=== PATIENT | female | born 1985 | race Caucasian/White ===

== ENCOUNTER 2018-12-07 20:53 | Emergency (ER) | payer MEDICAID ==
[~2018-12-07] VITALS: Ht 160 cm; Wt 49.9 kg
[2018-12-07 20:56] VITALS: BP_SYST 136
--- NOTE | 2018-12-07 20:56 | NUR ---
Placed in room 1 . Placed on time analysis clerk, blood pressure machine and pulse oximeter. To gown for exam. Side rails up.
--- NOTE | 2018-12-07 21:00 | NUR ---
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 En route 18G IV established, ASA, Nitro 0.4mg sublingual given. Denies any SOB, N/V/F, or any other symptoms. Will continue to monitor.
--- NOTE | 2018-12-07 21:30 | NUR ---
ER Dr. Rasmussen at bedside examining patient.
[2018-12-07 21:59] LABS: BASOPHILS % (AUTO) 0.8 % (0.0-2.0); EOSINOPHILS # (AUTO) 0.2 K/uL (0.0-0.4); EOSINOPHILS % (AUTO) 3.9 % (0.0-4.0); HEMATOCRIT 39.4 % (36-48); HEMOGLOBIN 13.2 g/dL (12.0-16.0); LYMPHOCYTES # (AUTO) 2.6 K/uL (1.0-5.5); LYMPHOCYTES % (AUTO) 41.9 % (20.5-51.5); MEAN CORPUSCULAR HEMOGLOBIN 32 pg (27-31); MEAN CORPUSCULAR HGB CONC 34 % (32-36); MEAN CORPUSCULAR VOLUME 94 fL (79.0-98.0); MONOCYTES # (AUTO) 0.4 K/uL (0.0-1.0); MONOCYTES % (AUTO) 7.3 % (1.7-9.3); NEUTROPHILS # (AUTO) 2.8 K/uL (1.8-7.7); NEUTROPHILS % (AUTO) 46.1 % (40.0-70.0); PLATELET COUNT (AUTO) 287 K/uL (130-430); RED BLOOD CELL COUNT(AUTO) 4.18 MIL/uL (4.2-6.2); RED CELL DISTRIBUTION WIDTH 13.3 % (9.0-15.0); WHITE BLOOD COUNT (AUTO) 6.1 K/uL (4.8-10.8)
[2018-12-07 22:14] LABS: CALCIUM 8.3 mg/dL (8.4-11.0); CREATININE 0.71 mg/dL (0.55-1.30); POTASSIUM 3.8 mmol/L (3.5-5.1)
[2018-12-07 22:17] LABS: INR 0.9 (0.8-1.2); PROTHROMBIN TIME 9.4 SECS (9.5-12.5)
[2018-12-07 22:19] LABS: ALBUMIN 3.3 g/dL (3.4-4.8); TOTAL BILIRUBIN 0.3 mg/dL (0.0-1.0)
--- NOTE | 2018-12-07 23:54 | NUR ---
Pt is sleeping in bed, no acute distress noted at this time. Will continue to monitor.
--- NOTE | 2018-12-08 00:18 | NUR ---
Patient transported to radiology via gurney, accompanied by rad staff.
[2018-12-08 00:25] LABS: BILIRUBIN,URINE 1+ (NEGATIVE); BLOOD, URINE 1+ (NEGATIVE); CLARITY/URINE CLEAR (CLEAR); COLOR,URINE YELLOW (YELLOW); GLUCOSE,URINE NEGATIVE (NEGATIVE); KETONES,URINE NEGATIVE (NEGATIVE); LEUKOCYTE ESTERASE ,URINE NEGATIVE (NEGATIVE); NITRITE, URINE NEGATIVE (NEGATIVE); PH,URINE 5.5 (5.0-8.0); PROTEIN URINE NEGATIVE (NEGATIVE); UROBILINOGEN,URINE 0.2 (0.2-1.0)
[2018-12-08 00:29] LABS: BACTERIA,URINE FEW /HPF (None Seen); WBC,URINE 0-3 /HPF (0-3)
--- NOTE | 2018-12-08 00:32 | NUR ---
Pt returned from radiology in stable condition, will continue to monitor.
[2018-12-08 00:43] LABS: BARBITURATE, URINE NEGATIVE (NEG <=200); BENZODIAZEPINE, URINE NEGATIVE (NEG <=150); CANNABINOID, URINE NEGATIVE (NEG <=50); COCAINE, URINE NEGATIVE (NEG <=150); METHAMPHETAMINES SCREEN,URINE NEGATIVE (NEG <=500); OPIATE, URINE NEGATIVE (NEG <=100); PHENCYCLIDINE SCREEN,URINE NEGATIVE (NEG <=25); UR TRICYCLIC ANTIDEPRESSANTS NEGATIVE (NEG <=300); URINE AMPHETAMINE POSITIVE (NEG <=500); URINE METHADONE NEGATIVE (NEG <=200); URINE OXYCODONE SCREEN NEGATIVE (NEG <=100); URINE PROPOXYPHENE SCREEN NEGATIVE (NEG <=300)
--- NOTE | 2018-12-08 01:30 | NUR ---
Pt is sleeping in bed, no acute distress noted at this time. Will continue to monitor.
--- NOTE | 2018-12-08 02:30 | NUR ---
Pt is sleeping in bed, no acute distress noted at this time. Will continue to monitor.
--- NOTE | 2018-12-08 03:30 | NUR ---
Pt is sleeping in bed, no acute distress noted at this time. Will continue to monitor.
--- NOTE | 2018-12-08 04:30 | NUR ---
Pt is sleeping in bed, no acute distress noted at this time. Will continue to monitor.
--- NOTE | 2018-12-08 05:30 | NUR ---
Pt is sleeping in bed, no acute distress noted at this time. Will continue to monitor.
--- NOTE | 2018-12-08 06:45 | NUR ---
Pt is sleeping in bed, no acute distress noted at this time. Will continue to monitor.
--- NOTE | 2018-12-08 07:13 | NUR ---
Pt is resting quietly in bed, arousable, A&Ox 3. Care has been endorsed to [facility]IL[facility]STRE. Will continue to monitor.
--- NOTE | 2018-12-08 07:21 | NUR ---
Medication reconciliation completed with information provided by patient. Denies taking any prescription medication.
--- NOTE | 2018-12-08 07:31 | NUR ---
spoke to faye, clinical case manager [facility], for admission notice ref #: [id number]
--- NOTE | 2018-12-08 07:42 | NUR ---
SPOKE TO PATIENT ABOUT END OF LIFE CARE. PATIENT STATES SHE IS FULL CODE.
--- NOTE | 2018-12-08 08:32 | NUR ---
breakfast tray at bedside.
--- NOTE | 2018-12-08 08:55 | NUR ---
PATIENT EATING BREAKFAST AT BEDSIDE.
--- NOTE | 2018-12-08 09:11 | NUR ---
PATIENT AMULATING TO RESTROOM. PATIENT HAS STEADY GAIT.
--- NOTE | 2018-12-08 10:15 | NUR ---
Patient given written and verbal discharge instructions and verbalizes understanding. Given copies of tests performed during visit. Patient is awake, alert and oriented. Ambulatory with steady gait. Refuses offer of long-term placement. Given list of available shelters in surrounding areas. Patient given money to take bus and map on how to get to her destination.
[2018-12-08 10:19] VITALS: BP_SYST 127
--- NOTE | 2018-12-08 10:19 | NUR ---
Patient given written and verbal discharge instructions and verbalizes understanding. ER MD discussed with patient the results and treatment provided. Patient in stable condition. ID arm band removed. IV Cathater removed. dressing intact. NO Rx given. Patient educated on pain management and to follow up with PMD. Pain Scale 0/10. Opportunity for questions provided and answered. Medication side effect fact sheet provided.
== END 2018-12-08 10:19 | disposition home or self-care (01) ==
LOC: SED 20:53
DX: F15.10 Other stimulant abuse, uncomplicated (principal); R11.10 Vomiting, unspecified; F12.10 Cannabis abuse, uncomplicated
CPT/HCPCS: 36415; 70450; 80053; 80307; 81000; 81025; 84484; 85025; 85610; 85730; 93005; 99284; G0482